=== PATIENT | female | born 1995 | race Two or more races ===

== ENCOUNTER 2023-07-10 15:55 | Emergency (ER) | payer OTHER ==
[~2023-07-10] VITALS: Ht 165.1 cm; Wt 45.4 kg
[2023-07-10] MEDS ORDERED: KETOROLAC TROMETHAMINE 30 MG VIAL IM STA (16:48)
[2023-07-10] MEDS ORDERED: CEFTRIAXONE SODIUM 1,000 MG VIAL IM STA (16:48)
[2023-07-10] MEDS ORDERED: DIPHENHYDRAMINE HCL 50 MG/ML VIAL 1ML IM STA (16:48)
== END 2023-07-10 17:29 | disposition home or self-care (01) ==
LOC: ER 15:55
DX: L03.114 Cellulitis of left upper limb (principal); Y93.89 Activity, other specified; Y92.89 Other specified places as the place of occurrence of the external cause; T63.441A Toxic effect of venom of bees, accidental (unintentional), initial encounter